=== PATIENT | female | born 1960 ===

== ENCOUNTER 2017-07-04 10:29 | Outpatient (CLI) | payer OTHER | END 2017-07-04 10:41 | disposition home or self-care (01) | LOC: MAMO-SONO 10:29 | DX: Z12.31 Encounter for screening mammogram for malignant neoplasm of breast (principal); N61.1 Abscess of the breast and nipple ==

== ENCOUNTER 2017-08-28 10:23 | Outpatient (CLI) | payer OTHER | END 2017-08-28 10:35 | disposition home or self-care (01) | LOC: SONOGRAMA 10:23 | DX: E04.1 Nontoxic single thyroid nodule (principal) ==